=== PATIENT | female | born 1985 | race Caucasian/White ===

== ENCOUNTER → 2024-05-16 14:02 | Outpatient (REF) | payer OTHER, SELFPAY | LOC: HWRAD 14:02 | PROVIDERS: ATTENDING PHYSICIAN Nurse Practitioner Family; FAMILY PHYSICIAN Nurse Practitioner Adult Health | DX: Z34.90 Encounter for supervision of normal pregnancy, unspecified, unspecified trimester (principal) | CPT/HCPCS: 76801; 76817 ==

== ENCOUNTER → 2024-06-19 10:59 | Outpatient (REF) | payer OTHER, SELFPAY | LOC: PNTC 10:59 | PROVIDERS: ATTENDING PHYSICIAN Obstetrics & Gynecology | DX: Z36.0 Encounter for antenatal screening for chromosomal anomalies (principal); Z36.82 Encounter for antenatal screening for nuchal translucency | CPT/HCPCS: 76801; 76813 ==

== ENCOUNTER → 2024-07-13 14:00 | Outpatient (REF) | payer OTHER, SELFPAY | LOC: PNTC 14:00 | PROVIDERS: ATTENDING PHYSICIAN Student in an Organized Health Care Education/Training Program | DX: O60.00 Preterm labor without delivery, unspecified trimester (principal); O09.529 Supervision of elderly multigravida, unspecified trimester | CPT/HCPCS: 76805; 76817 ==

== ENCOUNTER → 2024-07-26 07:57 | Outpatient (REF) | payer OTHER, SELFPAY | LOC: PNTC 07:57 | PROVIDERS: ATTENDING PHYSICIAN Student in an Organized Health Care Education/Training Program | DX: O09.219 Supervision of pregnancy with history of pre-term labor, unspecified trimester (principal) | CPT/HCPCS: 76815; 76817 ==

== ENCOUNTER → 2024-08-10 13:45 | Outpatient (REF) | payer OTHER, SELFPAY | LOC: PNTC 13:45 | PROVIDERS: ATTENDING PHYSICIAN Student in an Organized Health Care Education/Training Program | DX: O09.529 Supervision of elderly multigravida, unspecified trimester (principal); O34.30 Maternal care for cervical incompetence, unspecified trimester | CPT/HCPCS: 76811; 76817 ==

== ENCOUNTER → 2024-08-22 06:54 | Outpatient (REF) | payer OTHER, SELFPAY | LOC: PNTC 06:54 | PROVIDERS: ATTENDING PHYSICIAN Student in an Organized Health Care Education/Training Program | DX: O62.0 Primary inadequate contractions (principal) | CPT/HCPCS: 76815; 76817 ==

== ENCOUNTER → 2024-09-07 07:40 | Outpatient (REF) | payer OTHER, SELFPAY | LOC: PNTC 07:40 | PROVIDERS: ATTENDING PHYSICIAN Student in an Organized Health Care Education/Training Program | DX: O26.879 Cervical shortening, unspecified trimester (principal) | CPT/HCPCS: 76816; 76817 ==

== ENCOUNTER → 2024-10-12 07:56 | Outpatient (REF) | payer OTHER, SELFPAY | LOC: PNTC 07:56 | PROVIDERS: ATTENDING PHYSICIAN Obstetrics & Gynecology | DX: O09.529 Supervision of elderly multigravida, unspecified trimester (principal) | CPT/HCPCS: 76816 ==

== ENCOUNTER 2024-10-28 17:10 | Observation (INO) | payer OTHER, SELFPAY ==
[2024-10-28 17:14] VITALS: BMI 30.5
[2024-10-28 17:15] VITALS: BP 121/79
[2024-10-28 18:36] LABS: Urine Character Clear (Clear)
[2024-10-28 18:44] LABS: Urine Squamous Cell 21-25 /LPF (Few)
[2024-10-28 18:45] LABS: Urine Red Blood Cell 0-2 /HPF (0-2)
[2024-10-28 19:09] LABS: Hematocrit 31.4 % (37.0-47.0); Hemoglobin 11.7 g/dL (12.0-16.0); Mean Corp Hgb Conc. 37.3 g/dL (33.0-37.0); Mean Corpuscular Volume 86.5 fL (81.0-99.0); Platelet Count 231 10^3/uL (130-400); Red Cell Dist. Width 12.4 % (11.5-14.5)
[2024-10-28] MEDS: CELESTONE SOLUSPAN 2 MG IM (19:45)
[2024-10-28] MEDS: KEFLEX 500 MG PO (19:45)
[2024-10-28] MEDS: LR 1000 IV (19:47)
[2024-10-29] MEDS: INDOCIN 50 MG PO (01:03)
[2024-10-29] MEDS: INDOCIN 25 MG PO ×3 (06:48→19:05)
[2024-10-29] MEDS: ZOLOFT 50 MG PO (08:35)
[2024-10-29] MEDS: KEFLEX 500 MG PO ×4 (08:35→21:56)
[2024-10-29] MEDS: CELESTONE SOLUSPAN 2 MG IM (20:04)
[2024-10-30] MEDS: INDOCIN 25 MG PO ×3 (05:09→17:02)
[2024-10-30] MEDS: LR 1000 IV ×2 (05:09→07:45)
[2024-10-30] MEDS: KEFLEX 500 MG PO ×2 (07:45→12:56)
[2024-10-30] MEDS: ZOLOFT 50 MG PO (07:45)
[2024-10-31] MEDS: ZOLOFT 50 MG PO (08:13)
== END 2024-10-31 09:45 | disposition home or self-care (01) ==
LOC: LDRP 17:10
PROVIDERS: ADMITTING PHYSICIAN Student in an Organized Health Care Education/Training Program
DX: O60.03 Preterm labor without delivery, third trimester (principal); Z3A.31 31 weeks gestation of pregnancy; O99.343 Other mental disorders complicating pregnancy, third trimester; F41.9 Anxiety disorder, unspecified; O23.43 Unspecified infection of urinary tract in pregnancy, third trimester; O36.8330 Maternal care for abnormalities of the fetal heart rate or rhythm, third trimester, not applicable or unspecified; N39.0 Urinary tract infection, site not specified; O09.213 Supervision of pregnancy with history of pre-term labor, third trimester; O09.523 Supervision of elderly multigravida, third trimester; Z88.1 Allergy status to other antibiotic agents; Z88.2 Allergy status to sulfonamides
CPT/HCPCS: 96372; J0702; 76818; 81003; 81015; 82731; 85027; 86850; 86900; 86901; 87070; 87086; G0378

== ENCOUNTER → 2024-11-13 07:58 | Outpatient (REF) | payer OTHER, SELFPAY | LOC: PNTC 07:58 | PROVIDERS: ATTENDING PHYSICIAN Obstetrics & Gynecology | DX: O09.529 Supervision of elderly multigravida, unspecified trimester (principal) | CPT/HCPCS: 76816 ==

== ENCOUNTER 2024-12-19 08:01 | Inpatient (IN) | payer OTHER, SELFPAY ==
[2024-12-19 08:32] VITALS: BP 131/78; BMI 29.3
[2024-12-19] MEDS: TUMS CHEWABLE TABLET 400 MG PO (09:20)
[2024-12-19] MEDS: PITOCIN 30 UNITS/NSS 500 ML IV (09:23)
[2024-12-19] MEDS: LR 1000 IV (09:30)
[2024-12-19 09:36] LABS: Hematocrit 31.8 % (37.0-47.0); Hemoglobin 11.1 g/dL (12.0-16.0); Mean Corp Hgb Conc. 34.9 g/dL (33.0-37.0); Mean Corpuscular Volume 85.5 fL (81.0-99.0); Nucleated Red Blood Cells % 0 %; Platelet Count 168 10^3/uL (130-400); Red Cell Dist. Width 12.7 % (11.5-14.5)
[2024-12-19] MEDS: SUBLIMAZE 100 MCG EPIDURAL (09:46)
[2024-12-19] MEDS: FENTANYL/BUPIVACAINE 100 EPIDURAL (09:48)
[2024-12-19] MEDS: COLACE 100 MG PO (19:55)
[2024-12-19] MEDS: MOTRIN 600 MG PO (19:55)
[2024-12-19] MEDS: TYLENOL 650 MG PO (19:56)
[2024-12-19] MEDS: ZOVIRAX 800 MG PO (21:09)
[2024-12-20] MEDS: MOTRIN 600 MG PO ×2 (01:55→11:51)
[2024-12-20] MEDS: TYLENOL 650 MG PO ×2 (01:56→11:52)
[2024-12-20 05:47] LABS: Hematocrit 27.5 % (37.0-47.0); Hemoglobin 9.7 g/dL (12.0-16.0)
[2024-12-20] MEDS: PRENATAL PLUS 1 TABLET PO (08:00)
[2024-12-20] MEDS: COLACE 100 MG PO (08:00)
[2024-12-20] MEDS: ZOVIRAX 800 MG PO (08:00)
[2024-12-20] MEDS: ZOLOFT 50 MG PO (08:27)
[2024-12-20] MEDS: ZOVIRAX PO ×2 (11:51)
== END 2024-12-20 15:48 | disposition home or self-care (01) | DRG 807 ==
LOC: LDRP 08:01
PROVIDERS: ADMITTING PHYSICIAN Obstetrics & Gynecology
PROC: 10907ZC Drainage of Amniotic Fluid, Therapeutic from Products of Conception, Via Natural or Artificial Opening (ICD-10-PCS; 2024-12-19)
PROC: 3E033VJ Introduction of Other Hormone into Peripheral Vein, Percutaneous Approach (ICD-10-PCS; 2024-12-19)
PROC: 0UQMXZZ Repair Vulva, External Approach (ICD-10-PCS; 2024-12-19)
PROC: 0KQM0ZZ Repair Perineum Muscle, Open Approach (ICD-10-PCS; 2024-12-19)
PROC: 10E0XZZ Delivery of Products of Conception, External Approach (ICD-10-PCS; 2024-12-19)
DX: O98.52 Other viral diseases complicating childbirth (principal); Z37.0 Single live birth; Z3A.39 39 weeks gestation of pregnancy; O70.1 Second degree perineal laceration during delivery; O71.82 Other specified trauma to perineum and vulva
CPT/HCPCS: 85014; 85018; 85025; 86780; 86850; 86900; 86901; 87070; 88307